=== PATIENT | female | born 1975 | race Caucasian/White ===

== ENCOUNTER 2017-01-26 07:52 | Emergency (ER) | payer BC ==
[~2017-01-26] VITALS: Ht 162.6 cm; Wt 90.0 kg
[2017-01-26 09:16] VITALS: BP 153/71
== END 2017-01-26 09:17 | disposition home or self-care (01) ==
LOC: ER 08:07
DX: O26.891 Other specified pregnancy related conditions, first trimester (principal); O9A.211 Injury, poisoning and certain other consequences of external causes complicating pregnancy, first trimester; Z33.1 Pregnant state, incidental; R07.89 Other chest pain; Y92.410 Unspecified street and highway as the place of occurrence of the external cause; R10.9 Unspecified abdominal pain; Z3A.13 13 weeks gestation of pregnancy; V49.40XA Driver injured in collision with unspecified motor vehicles in traffic accident, initial encounter; Y93.89 Activity, other specified; Y92.89 Other specified places as the place of occurrence of the external cause; Y99.8 Other external cause status
CPT/HCPCS: 99283